=== PATIENT | male | born 1985 ===

== ENCOUNTER 2025-04-14 06:32 | Emergency (ER) | payer SELFPAY ==
[2025-04-14 06:34] VITALS: BMI 33.4
[2025-04-14 06:42] VITALS: BP 132/85; PULSE 79; RESP 19; TEMP 37.1; O2SAT 99
--- NOTE | 2025-04-14 06:50 | PD.EDEAR ---
ED Ear RME/HPI General Chief complaint: Ear Stated complaint: R EAR PAIN Time Seen by Provider: 04/14/25 06:39 Arrival date/time: 04/14/25 06:32 RME / HPI RME / HPI Narrative: 39-year-old male presents to the ER complaining of right ear pain atraumatic in nature x 5 days. Denies any congestion, cough, nausea, vomiting, headache, sore throat. Related Data Previous Rx's ?Medication ?Instructions ?Recorded amoxicillin 875 mg-potassium 1 tab PO Q12H #20 tabs 04/14/25 clavulanate 125 mg tablet fluticasone propionate 50 2 spray intranasal QDAY #16 grams 04/14/25 mcg/actuation nasal spray,suspension (Flonase Allergy Relief) guaifenesin 1,200 mg tablet, 1,200 mg PO Q12H #14 tabs 04/14/25 extended release 12 hr (Mucinex) pseudoephedrine HCl 30 mg tablet 60 mg (2 x 30 mg) PO Q6H PRN nasal 04/14/25 (Sudafed) congestion #30 tabs Allergies Allergy/AdvReac Type Severity Reaction Status Date / Time No Known Allergies Allergy Verified 04/14/25 06:37 ED Exam Narrative Physical exam: Constitutional: Patient alert and oriented. Well appearing. No acute distress. Not toxic appearing. Head: Normocephalic, atraumatic. Eyes: Periorbital regions bilaterally normal to inspection. Conjunctiva clear bilaterally. Sclera anicteric bilaterally. Pupils equal, round, reactive to light bilaterally. Extraocular movements intact bilaterally. Ears: External ears normal to inspection bilaterally. No mastoid tenderness bilaterally. EAC without edema or exudate bilaterally. Right TM is bulging with serous effusion, scant injection. Left TM pearly farrell with normal light reflex. Mouth/Throat: Mucous membranes moist. No stridor or muffled voice. Uvula midline. Rise and fall of soft palate normal. No tonsillar edema or exudate. No peritonsillar fullness. No trismus. Handling secretions without difficulty. Airway widely patent. Neck: Supple. Trachea midline. No JVD. No nuchal rigidity. No midline tenderness or step-offs. Normal range of motion. Respiratory: Normal effort. No accessory muscle use or respiratory distress. Lungs clear to auscultation bilaterally without rhonchi, wheezes, or crackles. Cardiovascular: RRR. Normal S1/S2. No murmurs or rubs. Radial pulses intact bilaterally. Upper Extremities: No gross deformities. Lower Extremities: No gross deformities. No edema or calf tenderness. Neuro: Speech normal. No gross motor or sensory deficits to upper or lower extremities bilaterally. GCS 15. CN II?XII grossly intact. Skin: Warm, dry, normal color. Psych: Normal affect. Cooperative. Normal insight. Course Quality Measures none Orders Category Date Time Status Ibuprofen Tab [Motrin Tab] Med 04/14/25 07:02 Discontinued 800 mg PO X1 ONE Vital Signs Vital signs: Vital Signs Temperature 98.8 F 04/14/25 06:42 Pulse Rate 79 04/14/25 06:42 Respiratory Rate 19 04/14/25 06:42 Blood Pressure 132/85 H 04/14/25 06:42 Pulse Oximetry (%) 99 04/14/25 06:42 Oxygen Delivery Method Room Air 04/14/25 06:42 Ear MDM Narrative MDM Narrative:: MDM Suspect: Concern for R AOM without signs of additional focal bacterial infection indicating tx, doubt [employer]/parapharyngeal abscess/epiglottis given lack of mass effect in OP cavity (uvula midline, no muffled voice/stridor/tripoding/drooling, airway widely patent, tolerating secretions and PO without difficulty) No indication for CXR given absence of tachypnea, respiratory distress, and rales/decreased breath sounds. No meningeal signs, nuchal rigidity, AMS, focal neuro signs, seizure to suggest meningitis or acute [employer] infection No signs of mastoiditis or OE on PE Plan: strict return precautions advised, supportive tx, amoxicillin-clavulonate, f/u with pmd 1-2 days. Medication side effects and precautions discussed with the pt. At the time of reassessment prior to discharge, the patient remains alert and oriented ?3 with GCS 15. Vitals are normal, pain is controlled, and the patient is tolerating oral intake without nausea or vomiting. The patient is agreeable to discharge and verbalizes understanding of the diagnosis, studies, treatment plan, medications (including side effects/precautions), and strict ER return precautions as discussed in the ED. All concerns were addressed, and the patient is comfortable with the plan. Patient data External records reviewed:: [facility] previous records Clinical information provided by:: patient Social determinants that could affect healthcare access:: none Patient has the following chronic illnesses:: none How is presenting disease/condition affected by chronic disease/condition?: no chronic disease Evaluation data The following diagnostics were reviewed and interpreted by me:: other (specify) Lab and/or radiology exams considered but not ordered:: Additional Labs and radiology considered, but not ordered as they were not clinically indicated at this time. Interpretation Summary: N/A Medications / Prescriptions Medications or Prescriptions considered but not ordered:: I ordered medications based on the patient?s clinical needs and assessment, as documented in the chart. For medications not prescribed, they were not indicated for the patient's current condition, and I determined they were unnecessary at this time to avoid potential risks or complications. Medication administrations:: Medication Administration History Discontinued Medications Ibuprofen (Ibuprofen Tab 400 Mg Tablet) 800 mg PO X1 ONE Stop: 04/14/25 07:03 As noted Consultations Consultation(s) initiated? (list below): No Diagnosis Most likely diagnosis given after review of the tests above:: Acute otitis media Admission Indicated Admission indicated?: not indicated Admission Request Was there a request for admission?: No Disposition Plan Disposition Plan: Discharge Discharge Attestation Discharge Attestation: The patient and all family members were given an opportunity to ask questions and understood the discharge instructions. Discharge instructions specifically effects, indications for sooner follow up or return to the emergency department, and the expected course of current diagnosis. Patient condition: Stable Discharge Plan Plan Patient Disposition: HOME (Self Care) Patient condition on transfer: Stable Prescriptions/Referrals Prescriptions/Med Rec: New amoxicillin-pot clavulanate 875-125 mg tablet 1 tab PO Q12H Qty: 20 0RF pseudoephedrine HCl [Sudafed] 30 mg tablet 60 mg PO Q6H PRN (Reason: nasal congestion) Qty: 30 0RF fluticasone propionate [Flonase Allergy Relief] 50 mcg/actuation spray,suspension 2 spray intranasal QDAY Qty: 16 0RF Rx Instructions: administer into each nostril guaifenesin [Mucinex] 1,200 mg tablet extended release 12hr 1,200 mg PO Q12H Qty: 14 0RF Problem List Clinical Impression: Otitis media Patient/Caregiver Discharge Instructions Education Materials: ED Otitis Media Antibiotic ... Additional Instructions: Follow up with your primary medical doctor within 48 hours. Return to the Emergency Room immediately for any new, worsening, continuing symptoms or any concerns at all. Return to the Emergency Room within 48 hours if you are unable to follow up with your primary medical doctor within 24 hours. Print Language: Angolan Stand Alone Forms: Allie Award Info., Patient Portal Info Letter PA/FAN ENGINE ENGINEER Supervising Physician PA/FAN ENGINE ENGINEER Supervising Physician: Dr. Rider
[2025-04-14] MEDS: IBUPROFEN TAB 400 MG TABLET 800 MG PO (07:20)
== END 2025-04-14 07:30 | disposition home or self-care (01) ==
LOC: SERX 07:35
PROVIDERS: Emergency Provider Emergency Medicine
DX: H66.91 Otitis media, unspecified, right ear (principal)
CPT/HCPCS: 99281; A9270